=== PATIENT | female | born 1960 | race Caucasian/White ===

== ENCOUNTER 2021-12-22 07:11 | Day surgery (SDC) | payer OTHER ==
[~2021-12-22] VITALS: Ht 157.5 cm; Wt 73.9 kg
[~2021-12-22 07:11] MED LIST: ADVIL LIQUI-GE200 MG PO; MACRODANTIN100 MG PO; MULTIPLE VITAM1 EAC1 PO; VIACTIV 650 MG1 EACH PO
--- NOTE | 2021-12-22 09:01 | NUR ---
12/22/21 0901 Alina Uribe PT TO PACU SLEEPY BUT AROUBALE, DENIES PAIN OR NAUSEA.
--- NOTE | 2021-12-23 06:08 | OR ---
[facility] [address], [place] [address] Signed DATE OF OPERATION: 12/22/2021 SURGEON: Tiffany Montejo MD PREOPERATIVE DIAGNOSES: 1. Substernal chest pain. 2. Bloating, nausea and epigastric abdominal pain. 3. Gastroesophageal reflux disease. 4. History of H pylori recently treated. POSTOPERATIVE DIAGNOSES: 1. Minimal diffuse gastritis. 2. Short lower esophageal sphincter. 3. GE junction at 33 cm. PROCEDURES: EGD with CLOtest and biopsies of the antrum at GE junction. ESTIMATED BLOOD LOSS: None. INDICATIONS: Magaly is a 61-year-old female, asked to see me for upper endoscopy. She underwent colonoscopy with myself at age 46 in 2006 for abdominal pain with constipation and diarrhea after . She has a long redundant colon. Biopsies from the terminal ileum and the colon were all negative. She had done well with Versed and fentanyl. She came back in 2019 at the age of 58. She had minimal diverticulosis and minimal internal hemorrhoids. Again, she did well with Versed and fentanyl. She seems to have a history of irritable bowel syndrome. She is now having substernal chest pain with bloating, nausea and acid reflux. She talks about epigastric abdominal pain. Her H pylori was positive and she was treated with clarithromycin, Flagyl and Prilosec for two weeks. Overall, she feels better. She describes acid reflux several times a week. She uses [place] as needed. She is not using any H2 kenny or proton-pump inhibitor, which she confirmed today. She does not feel her symptoms are frequent enough to take daily medication. Her primary care provider asked her to see me for upper endoscopy. Magaly had described postoperative nausea and vomiting. Therefore, we gave her Zofran and Phenergan in our preop area. We had a long discussion regarding barium swallow versus upper endoscopy. She had been a little apprehensive because she was septic from her [id number] for her chemotherapy during her breast cancer. In the end, she decided she wanted to undergo the upper endoscopy with biopsies. I gave her a pamphlet on upper Electronically Signed By: TIFFANY MONTEJO MD 12/23/21 0608 PATIENT NAME: MAGALY KAPLAN OPERATIVE REPORT DATE OF : 60 REPORT #: [id number] PHYSICIAN: TIFFANY MONTEJO MD PCP: TIFFANIE WYNN REPORT IS CONFIDENTIAL AND NOT TO BE RELEASED WITHOUT AUTHORIZATION [facility] [address], [place] [address] Signed endoscopy. She understands the nature of the test. There is risk including, but not limited to gas bloating, crampy abdominal pain, bleeding, perforation requiring surgery, and missed diagnosis. We also reviewed the need for IV conscious sedation. She had expressed understanding and wished to proceed. PROCEDURE NOTE: Magaly was taken into our endoscopy suite and placed in the supine semi-recumbent position. The posterior oropharynx was anesthetized with Hurricaine spray. A bite block was utilized for the case. She used 6 mg of Versed and 100 mcg of fentanyl to cover the case. The adult gastroscope had been introduced and advanced out into the third portion of the duodenum without difficulty. The duodenum was unremarkable. She had minimal in her pyloric bulb. Her stomach showed very mild diffuse erythematous changes. There were no ulcerations. We took a biopsy of the antrum for CLOtest. Initial biopsy came out of the antrum for pathologic review. Upon retroflexion of scope, we really cannot appreciate a hiatal hernia. We withdrew the scope up through the area of the GE junction, which was compliant without stricture. However, her lower esophageal sphincter seems to be fairly short. She had very minimal irritation around her Z-line. We went ahead and took a biopsy in this area for pathologic review. The GE junction is 33 cm from her incisors. There was no Seaman's mucosa. No distal esophagitis. The middle and upper esophagus were unremarkable. After this, the gas was suctioned out and the gastroscope removed. Magaly tolerated the procedure quite well. RECOMMENDATIONS: I will see Magaly back in my office in 7 to 14 days to review her results. She may or may not consider an H2 kenny or proton-pump inhibitor depending on her symptoms. Tiffany Montejo MD ALB/MODL /[id number] cc: MD Tiffanie Andino NP Electronically Signed By: TIFFANY MONTEJO MD 12/23/21 0608 PATIENT NAME: MAGALY KAPLAN OPERATIVE REPORT DATE OF : 60 REPORT #: [id number] PHYSICIAN: TIFFANY MONTEJO MD PCP: TIFFANIE WYNN REPORT IS CONFIDENTIAL AND NOT TO BE RELEASED WITHOUT AUTHORIZATION [facility] [address] [place], [place] [address] Signed Copies: TIFFANY MONTEJO MD ~ Electronically Signed By: TIFFANY MONTEJO MD 12/23/21 0608 PATIENT NAME: MAGALY KAPLAN OPERATIVE REPORT DATE OF : 60 REPORT #: [id number] PHYSICIAN: TIFFANY MONTEJO MD PCP: TIFFANIE WYNN REPORT IS CONFIDENTIAL AND NOT TO BE RELEASED WITHOUT AUTHORIZATION
--- NOTE | 2021-12-26 17:43 | PATH ---
[facility] [address] [place] [facility] [place] [address] Signed SPECIMEN(S): A ANTRUM/PYLORUS BIOPSY SPECIMEN(S): B GE JUNCTION SPECIMEN SOURCE: A. ANTRUM/PYLORUS BIOPSY B. GE JUNCTION CLINICAL HISTORY: Substernal chest pain; bloating; nausea; acid reflux. Postop: Mild gastritis. FINAL PATHOLOGIC DIAGNOSIS: A. Antrum/pylorus, biopsy: - Diffuse superficial chronic gastritis. - Negative for epithelial atypia. - Helicobacter pylori immunostain is negative for organisms. B. GE junction, biopsy: - Gastric-type mucosa with focal mild chronic inflammation. - Negative for evidence of specialized intestinal (goblet cell) metaplasia or dysplasia. JVR:sjc:C2NR MICROSCOPIC EXAMINATION: Histologic sections of all submitted blocks are examined by light microscopy. These findings, together with the gross examination, support the pathologic diagnosis. IMMUNOHISTOCHEMICAL RESULTS Deparaffinized tissue sections undergo optimized epitope retrieval prior to incubation with the appropriate antibody. Visualization is provided by an immunoperoxidase technique. Immunohistochemical staining is evaluated by visual examination of slides using a conventional light microscope. The positive control slides for each immunohistochemical test are reviewed and found to exhibit the appropriate staining pattern. Results on the gastric mucosa are as indicated below. Tests performed on formalin fixed, paraffin-embedded block #A1: - Helicobacter pylori (polyclonal*): Negative. JVR:sjc GROSS DESCRIPTION: Two specimens are received in two containers, labeled "TW." A. The specimen, labeled "TW, per the requisition, antrum/pylorus biopsy," is PATIENT NAME: SHANTHI KAPLAN PATHOLOGY DATE OF : 60 REPORT #: [id number] PHYSICIAN: RICHARD BUTLER PCP: RUPAL WYNN REPORT IS CONFIDENTIAL AND NOT TO BE RELEASED WITHOUT AUTHORIZATION [facility] [address] [place], [place] [address] Signed received in formalin and consists of one barrios soft tissue fragment that measures 0.3 cm in greatest dimension. The specimen is entirely submitted in cassette (A1). B. The specimen, labeled "TW, per the requisition, [place]," is received in formalin and consists of one barrios soft tissue fragment that measures 0.3 cm in greatest dimension. The specimen is entirely submitted in cassette (B1). CA (under the direct supervision of a pathologist) The Gross Description was prepared using a voice recognition system. The report was reviewed for accuracy; however, sound-alike word errors, addition and/or deletions may occur. If there is any question about this report, please contact Client Services. ADDITIONAL NOTES: *The performance characteristics of these immunohistochemical tests have been determined by [facility]. Some of these tests have been developed by [facility]. Some of the above tests may use analyte specific reagents; they have not been cleared or approved by the U.S. Food Drug Administration (FDA). The FDA has determined that such clearance or approval is not necessary. These tests are used for clinical purposes. They should not be regarded as investigational or for research. [facility] is certified under the Clinical Laboratory Improvement Amendments of 1988 as qualified to perform high complexity clinical laboratory testing. PERFORMING LABORATORY: The technical component was performed by [facility], [address] [place] [id number] (CLIA# [id number]). Professional interpretation was performed by [facility] - [facility] [place] [address] (CLIA#: [id number]). Diagnostician: Juventino Rome MD Pathologist Electronically Signed 12/26/2021 Copies: ~ PATIENT NAME: SHANTIH KAPLAN PATHOLOGY DATE OF : 60 REPORT #: [id number] PHYSICIAN: RICHARD BUTLER PCP: RUPAL WYNN REPORT IS CONFIDENTIAL AND NOT TO BE RELEASED WITHOUT AUTHORIZATION
== END 2021-12-22 09:45 | disposition home or self-care (01) ==
LOC: DS 07:11
PROVIDERS: ATTEND Colon & Rectal Surgery
PROC: 0DB68ZZ Excision of Stomach, Via Natural or Artificial Opening Endoscopic (ICD-10-PCS; principal; 2021-12-22 08:15)
DX: K21.9 Gastro-esophageal reflux disease without esophagitis (principal); R07.89 Other chest pain; R11.0 Nausea; R14.0 Abdominal distension (gaseous); R10.13 Epigastric pain; F41.9 Anxiety disorder, unspecified; Z85.3 Personal history of malignant neoplasm of breast; F33.41 Major depressive disorder, recurrent, in partial remission; Z90.710 Acquired absence of both cervix and uterus; K29.50 Unspecified chronic gastritis without bleeding
CPT/HCPCS: 36415; 87077; 99153; G0500; J2250; J2405; J2550; J3010; J7121